=== PATIENT | male | born 2000 | race Hispanic/Latino ===

== ENCOUNTER 2024-10-27 01:42 | Emergency (ER) | payer SELFPAY, OTHER ==
[2024-10-27] MEDS ORDERED: LIDOCAINE 2% W/EPI 1:200,000 MPF 20 ML VIAL IM ONE (02:33)
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
[2024-10-27] MEDS ORDERED: AMOX/K CLAV 875 MG TAB ONE (03:59)
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
== END 2024-10-27 04:05 | disposition home or self-care (01) ==
LOC: ER 01:42
DX: S01.21XA Laceration without foreign body of nose, initial encounter (principal); S01.112A Laceration without foreign body of left eyelid and periocular area, initial encounter; F10.129 Alcohol abuse with intoxication, unspecified; V47.5XXA Car driver injured in collision with fixed or stationary object in traffic accident, initial encounter
CPT/HCPCS: 70450; 70486; 72125; 76377; 99284